=== PATIENT | female | born 1995 | race Caucasian/White ===

== ENCOUNTER 2017-09-30 09:43 | Emergency (ER) | payer OTHER ==
[2017-09-30 10:50] VITALS: BP 116/68
--- NOTE | 2017-10-01 09:35 | ED ---
Dakotah Hernandez Angela, scribed for Hans Bonilla MD on 09/30/17 at 1003 . Influenza-Like Illness - HPI Summary HPI Summary: This pt is a 22 y/o female presenting to [facility] via EMS c/o muscle ache, sore throat, runny nose, cough, and fever since last night. She additionally notes headache. Pt reports she took her cold medicine yesterday but her symptoms persist. She denies any PMHx. Pt denies alcohol, tobacco, and drug use. - History of Current Complaint Chief Complaint: EDFluSymptoms Time Seen by Provider: 09/30/17 09:47 Hx Obtained From: Patient Onset/Duration: Lasting Hours, Still Present Severity: Moderate Associated Signs & Symptoms: Fever, Cough, Sore Throat, Nasal Congestion, Headache PMH/Surg Hx/FS Hx/Imm Hx Endocrine/Hematology History: Denies: Hx Diabetes Cardiovascular History: Denies: Hx Hypertension - Surgical History Surgery Procedure, Year, and Place: Jaw surgery Infectious Disease History: No Infectious Disease History: Denies: Traveled Outside the [place] in Last 30 Days - Family History Known Family History: Positive: Hypertension Negative: Cardiac Disease, Diabetes - Social History Alcohol Use: None Substance Use Type: Reports: None Smoking Status (MU): Never Smoked Tobacco Review of Systems Positive: Fever Positive: Sore Throat, Nasal Discharge Positive: Cough Positive: Myalgia Positive: Headache All Other Systems Reviewed And Are Negative: Yes Physical Exam - Summary Physical Exam Summary: VITAL SIGNS: Reviewed. GENERAL: Patient is a well-developed and nourished female who is lying comfortable in the stretcher. Patient is not in any acute respiratory distress. HEAD AND FACE: No signs of trauma. No ecchymosis, hematomas or skull depressions. No sinus tenderness. Positive runny nose. EYES: PERRLA, EOMI x 2, No injected conjunctiva, no nystagmus. EARS: Hearing grossly intact. Ear canals and tympanic membranes are within normal limits. MOUTH: Pharyngeal erythema. NECK: Supple, trachea is midline, no adenopathy, no JVD, no carotid bruit, no c- spine tenderness, neck with full ROM. CHEST: Symmetric, no tenderness at palpation LUNGS: Clear to auscultation bilaterally. No wheezing or crackles. CVS: Regular rate and rhythm, S1 and S2 present, no murmurs or gallops appreciated. ABDOMEN: Soft, non-tender. No signs of distention. No rebound no guarding, and no masses palpated. Bowel sounds are normal. EXTREMITIES: FROM in all major joints, no edema, no cyanosis or clubbing. NEURO: Alert and oriented x 3. No acute neurological deficits. Speech is normal and follows commands. SKIN: Dry and warm Triage Information Reviewed: Yes Vital Signs On Initial Exam: Initial Vitals Temp Pulse Resp BP Pulse Ox 98.9 F 100 16 119/66 100 09/30/17 09:46 09/30/17 09:46 09/30/17 09:46 09/30/17 09:46 09/30/17 09:46 Vital Signs Reviewed: Yes Diagnostics - Vital Signs Vital Signs Temp Pulse Resp BP Pulse Ox 09/30/17 09:46 98.9 F 100 16 119/66 100 - Laboratory Lab Results: Lab Results 09/30/17 09/30/17 Range/Units 09:57 10:04 Influenza A (Rapid) Positive H (Negative) Influenza B (Rapid) Negative (Negative) Group A Strep Rapid Negative (Negative) Lab Statement: Any lab studies that have been ordered have been reviewed, and results considered in the medical decision making process. Flu Symptom Course/Dx - Course Assessment/Plan: This pt is a 22 y/o female presenting to [facility] via EMS c/o muscle ache, sore throat, runny nose, cough, and fever since last night. She additionally notes headache. Pt reports she took her cold medicine yesterday but her symptoms persist. She denies any PMHx. Pt denies alcohol, tobacco, and drug use. Test results show Influenza A is positive. Rapid strep is negative. She was recommended to increase fluid intake and stay home for 72 hours. She was treated with Tamiflu. Pt will be discharged to home with follow up from her PCP. Pt is hemodynamically stable, alert and oriented x3. - Diagnoses Differential Diagnosis/HQI/PQRI: Positive: Bronchitis, Broncholiolitis, Influenza, Pneumonia, Upper Respiratory Infection Provider Diagnoses: Influenza Discharge - Discharge Plan Condition: Stable Disposition: HOME Prescriptions: Oseltamivir CAP* [Tamiflu CAP*] 75 mg PO BID #10 cap Patient Education Materials: Influenza (ED) Forms: *School Release Referrals: [facility] [Outside] - 1 Week Additional Instructions: Please follow up with your primary care provider. RETURN TO THE ED FOR ANY WORSENING SYMPTOMS. The documentation as recorded by the Dakotah wu Angela accurately reflects the service I personally performed and the decisions made by me, Hans Bonilla MD.
== END 2017-09-30 10:45 | disposition home or self-care (01) ==
LOC: ED 09:43
DX: J11.1 Influenza due to unidentified influenza virus with other respiratory manifestations (principal); R50.9 Fever, unspecified; R05 Cough; J02.9 Acute pharyngitis, unspecified; R09.81 Nasal congestion; R51 Headache
CPT/HCPCS: 87502; 87651; 99282